=== PATIENT | female | born 1970 | race Two or more races ===

== ENCOUNTER 2017-11-28 10:34 | Emergency (ER) | payer OTHER ==
[2017-11-28 10:42] VITALS: BP 116/62; PULSE 77; TEMP 98; BMI 41.0
--- NOTE | 2017-11-28 11:01 | PDOC ---
History of Present Illness - General Chief Complaint: Injury Stated Complaint: FALL Time Seen by Provider: 11/28/17 10:45 History Source: Patient Exam Limitations: No Limitations - History of Present Illness Initial Comments: 11/28/17 10:57 Slipped and fell on wet floor while at work this morning, landing on left knee and right leg extended pulling her hamstring area . Occurred: reports: just prior to arrival, this morning Severity: reports: moderate Pain Location: reports: lower extremity (bilateral legs/ left knee and right thigh) Method of Injury: Yes: fall Loss of Consciousness: no loss of consciousness Associated Symptoms (Fall): denies symptoms Past History - Travel Traveled outside of the country in the last 30 days: No Close contact w/someone who was outside of country & ill: No - Past Medical History Allergies/Adverse Reactions: Allergies Allergy/AdvReac Type Severity Reaction Status Date / Time No Known Allergies Allergy Verified 11/28/17 10:40 Home Medications: Ambulatory Orders Losartan/Hydrochlorothiazide [Losartan-Hctz 100-12.5 mg Tab] 1 each PO DAILY - Suicide/Smoking/Psychosocial Hx Smoking History: Never smoked Hx Alcohol Use: Yes Drug/Substance Use Hx: No Review of Systems - Review of Systems Able to Perform ROS?: Yes Is the patient limited [place] proficient: Yes Constitutional: Yes: Symptoms Reported HEENTM: No: Symptoms Reported Respiratory: No: Symptoms reported Musculoskeletal: Yes: Symptoms Reported, See HPI, Joint Pain, Joint Swelling Integumentary: Yes: See HPI. No: Symptoms Reported, Bruising Neurological: Yes: See HPI. No: Symptoms reported All Other Systems: Reviewed and Negative *Physical Exam - Vital Signs Last Vital Signs Temp Pulse Resp BP Pulse Ox 98.0 F 77 18 116/62 97 11/28/17 10:40 11/28/17 10:40 11/28/17 10:40 11/28/17 10:40 11/28/17 10:40 - Physical Exam General Appearance: Yes: Nourished, Appropriately Dressed, Mild Distress, Moderate Distress HEENT: positive: KATHRYN, Normal ENT Inspection, TMs Normal, Pharynx Normal Neck: positive: Supple. negative: Tender Respiratory/Chest: positive: Lungs Clear Gastrointestinal/Abdominal: positive: Soft. negative: Tender Musculoskeletal: positive: Normal Inspection, Muscle Spasm. negative: Vertebral Tenderness Extremity: positive: Normal Capillary Refill, Normal Inspection (no patella tenderness, crepitus or step-offs. Has no medial or lateral tenderness, has a mild bruise noted to superior aspect of left knee but no obvious injury. Neurovascular intact.), Swelling (patient with mild tenderness to inferior aspect of right hamstring, but able to contract with tenderness. Has no obvious deficit, no bruising noted, neurovascular intact distal to injury, no knee injury) Integumentary: positive: Normal Color, Dry, Warm Neurologic: positive: nursing consultant II-XII NML intact, Fully Oriented, Alert, Normal Mood/ Affect, Normal Response, Motor Strength 10/10 ED Treatment Course - RADIOLOGY Radiology Studies Ordered: Category Date Time Status KNEE 3 POS-LEFT [RAD] Stat Radiology 11/28/17 10:56 Ordered Medical Decision Making - Medical Decision Making 11/28/17 11:41 X-rays negative for fractures or dislocation to left knee, we'll treat with Héctor wrap NSAIDs and rest for hamstring strain. right leg 11/28/17 11:41 *DC/Admit/Observation/Transfer Diagnosis at time of Disposition: Right hamstring muscle strain Qualifiers: Encounter type: initial encounter Qualified Code(s): S76.311A - Strain of muscle, fascia and tendon of the posterior muscle group at thigh level, right thigh, initial encounter - Discharge Dispostion Disposition: HOME Condition at time of disposition: Stable Decision to Admit order: No - Referrals Referrals: Dante Brown MD [Staff Physician] - - Patient Instructions Printed Discharge Instructions: DI for Hamstring Strain Additional Instructions: Rest, ice to area on and off for 15 minutes 4-6 times a day Avoid heavy lifting or exercise until pain and swelling is resolved or until further directed Keep area highly elevated to reduce swelling Use splints/Héctor wrap as directed Followup with orthopedist in one to 2 days if not improving, if significantly improved may wait one week for followup with orthopedist May use ibuprofen 2-200 mg tablets every 6 hours as needed for pain - Post Discharge Activity Forms/Work/School Notes: Back to Work
[2017-11-28] MEDS ORDERED: IBUPROFEN 600 MG TABLET (FP) PO ONE ×2 (11:26→11:27)
== END 2017-11-28 11:47 | disposition home or self-care (01) ==
LOC: JERFT 10:34
DX: S76.311A Strain of muscle, fascia and tendon of the posterior muscle group at thigh level, right thigh, initial encounter (principal); S89.82XA Other specified injuries of left lower leg, initial encounter; W01.0XXA Fall on same level from slipping, tripping and stumbling without subsequent striking against object, initial encounter; Y93.89 Activity, other specified; Y92.098 Other place in other non-institutional residence as the place of occurrence of the external cause; Y99.0 Civilian activity done for income or pay
CPT/HCPCS: 73562-TC-LT-FY; 99281-25